=== PATIENT | female | born 1960 | race Caucasian/White ===

== ENCOUNTER 2017-08-14 19:50 | Emergency (ER) | payer OTHER ==
[~2017-08-14] VITALS: Ht 177.8 cm; Wt 75.0 kg
[2017-08-14 19:56] VITALS: BP 161/82; PULSE 74; RESP 22; TEMP 98.5
[2017-08-14] MEDS ORDERED: TRAZ100T6 PO (20:13)
[2017-08-14] MEDS ORDERED: ACYC200C66 PO (20:13)
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
[2017-08-14] MEDS ORDERED: ROBA500T PO (21:32)
[2017-08-14] MEDS ORDERED: IBUP800T23 PO (21:32)
[2017-08-14] MEDS ORDERED: IBUPROFEN 800 MG TAB PO ONE (21:45)
== END 2017-08-14 22:35 | disposition home or self-care (01) ==
LOC: NEPC 19:50
DX: S13.4XXA Sprain of ligaments of cervical spine, initial encounter (principal); V89.2XXA Person injured in unspecified motor-vehicle accident, traffic, initial encounter; Y92.410 Unspecified street and highway as the place of occurrence of the external cause; J45.909 Unspecified asthma, uncomplicated; Z79.899 Other long term (current) drug therapy
CPT/HCPCS: 71010; 72040; 99283